=== PATIENT | male | born 1950 | race Caucasian/White ===

== ENCOUNTER 2017-02-25 11:31 | Inpatient (IN) ==
[2017-02-25] MEDS ORDERED: cefTRIAXone 1,000 MG in SODIUM CHLORIDE 0.9% 100 ML IV STA (13:55)
[2017-02-25] MEDS ORDERED: ALBUTEROL/IPRATROPIUM 3 ML NEB RESP TX STA (13:55)
[2017-02-25] MEDS ORDERED: SODIUM CHLORIDE 0.9% 500 ML IV STA (13:55)
[2017-02-25] MEDS ORDERED: methylPREDNISolone SOD SUC 125 MG/2 ML VIAL IV STA (13:55)
[2017-02-25] MEDS ORDERED: ONDANSETRON 4 MG/2 ML VIAL IV STA (13:55)
[2017-02-25] MEDS ORDERED: ONDANSETRON 4 MG/2 ML VIAL ONE (14:03)
[2017-02-25] MEDS ORDERED: methylPREDNISolone SOD SUC 125 MG/2 ML VIAL ONE (14:03)
[2017-02-25 14:30] LABS: Basophils % 0.2 % (0.0-0.8); Eosinophils # 0.3 10*3/uL (0.0-0.87); Hematocrit 32.3 VOL% (42.0-52.0); Hemoglobin 11.4 GM/DL (14.0-18.0); Immature Granulocytes % 0.6 %; Immature Granulocytes Absolute 0.05 #; Lymphocytes # 1.7 10*3/uL (1.4-4.0); Lymphocytes % 18.5 % (21.2-54.2); Mean Corpuscular HGB Conc 35.3 GM/DL (32-36); Mean Corpuscular Hemoglobin 31 PG (27-34); Mean Corpuscular Volume 88.5 FL (87-102); Mean Platelet Volume 9.4 FL (9.6-12.0); Monocytes # 0.8 10*3/uL (0.11-0.8); Monocytes % 9.3 % (1.7-12.7); Neutrophils # 6.1 10*3/uL (1.4-7.4); Neutrophils % 68.4 % (38.7-73.9); Platelet Count 209 T/CUMM (130-400); Red Blood Count 3.65 MC/CUMM (3.8-5.5); Red Cell Distribution Width 13.9 % (9.3-17.3); White Blood Count 8.9 T/CUMM (4-12)
[2017-02-25] MEDS ORDERED: cefTRIAXone 1,000 MG VIAL ONE (14:46)
[2017-02-25 14:56] LABS: Alanine Aminotransferase 15 U/L (16-61); Albumin 3.1 G/DL (3.4-5.0); Alkaline Phosphatase 56 U/L (45-117); Aspartate Amino Transferase 17 U/L (0-37); Bilirubin,Total < 0.39 MG/DL (0.2-1.0); Blood Urea Nitrogen 8 MG/DL (7-18); Calcium 8.6 MG/DL (8.5-10.1); Glucose 88 MG/DL (74-106); Magnesium 2.1 MG/DL (1.8-2.4); Osmolality,Calculated 260.5 MOS/KG (273-304); Potassium 4.2 MMOL/L (3.5-5.1); Sodium 132 MMOL/L (136-145); Total Protein 6.4 G/DL (6.4-8.3); Troponin I Only < 0.015 NG/ML (0.00-0.045)
[2017-02-25 15:46] LABS: Apearance,Urine CLEAR (Clear); Bilirubin,Urine Negative (Negative); Blood, Urine Negative (Negative); Glucose,Urine (UA) Negative (Negative); Ketones,Urine Negative (Negative); Nitrite,Urine Negative (Negative); Protein,Urine Negative; Urine Color Colorless (Yellow); Urine Specific Gravity 1.002 (1.001-1.035); Urine Urobilinogen < 2.0 EU/DL (0.2-1.0); WBC,Urine <1 /HPF (0-6)
[2017-02-25] MEDS ORDERED: ONDANSETRON 4 MG/2 ML VIAL IV PRN (18:05)
[2017-02-25] MEDS ORDERED: ACETAMINOPHEN 325 MG TABLET PO PRN (18:05)
[2017-02-25] MEDS ORDERED: ALBUTEROL/IPRATROPIUM 3 ML NEB RESP TX PRN (18:05)
[2017-02-25] MEDS ORDERED: NITROGLYCERIN SL 0.4 MG TABLET SL PRN (18:05)
[2017-02-25] MEDS: SODIUM CHLORIDE 0.9% 1,000 ML IV SCH (18:46)
[2017-02-25] MEDS: methylPREDNISolone SOD SUC 40 MG/1 ML VIAL IV SCH (18:46)
[2017-02-25] MEDS ORDERED: SERTRALINE 50 MG TABLET PO SCH (21:00)
[2017-02-25] MEDS ORDERED: GABAPENTIN 600 MG TABLET PO SCH (21:00)
[2017-02-25] MEDS ORDERED: SIMVASTATIN 80 MG TABLET PO SCH (21:00)
[2017-02-25] MEDS ORDERED: ENOXAPARIN 40 MG/0.4 ML SYRINGE SUBCUT SCH (21:00)
[2017-02-25] MEDS ORDERED: IBUPROFEN 800 MG TABLET PO SCH (21:00)
[2017-02-25] MEDS ORDERED: traZODone 50 MG TABLET PO SCH (21:00)
[2017-02-25] MEDS: CARVEDILOL 25 MG TABLET PO SCH (21:10)
[2017-02-25] MEDS: DOCUSATE SODIUM 100 MG CAPSULE PO SCH (21:10)
[2017-02-25] MEDS: ISOSORBIDE DINITRATE 20 MG TABLET PO SCH (21:10)
[2017-02-26] MEDS: SODIUM CHLORIDE 0.9% 1,000 ML IV SCH (01:57)
[2017-02-26] MEDS: methylPREDNISolone SOD SUC 40 MG/1 ML VIAL IV SCH ×2 (01:58→08:59)
[2017-02-26 05:16] LABS: Basophils % 0.1 % (0.0-0.8); Hematocrit 30.6 VOL% (42.0-52.0); Hemoglobin 10.6 GM/DL (14.0-18.0); Immature Granulocytes % 0.6 %; Immature Granulocytes Absolute 0.05 #; Lymphocytes # 0.6 10*3/uL (1.4-4.0); Lymphocytes % 7.1 % (21.2-54.2); Mean Corpuscular HGB Conc 34.6 GM/DL (32-36); Mean Corpuscular Hemoglobin 31 PG (27-34); Mean Platelet Volume 9.6 FL (9.6-12.0); Monocytes # 0.1 10*3/uL (0.11-0.8); Monocytes % 1.7 % (1.7-12.7); Neutrophils % 90.5 % (38.7-73.9); Platelet Count 190 T/CUMM (130-400); Red Cell Distribution Width 13.7 % (9.3-17.3); White Blood Count 7.7 T/CUMM (4-12)
[2017-02-26 05:59] LABS: Albumin 2.7 G/DL (3.4-5.0); Bilirubin,Total 0.7 MG/DL (0.2-1.0); Calcium 7.8 MG/DL (8.5-10.1); Magnesium 2.6 MG/DL (1.8-2.4); Osmolality,Calculated 270.1 MOS/KG (273-304); Potassium 4.7 MMOL/L (3.5-5.1); Risk Ratio 2.88; Total Protein 5.8 G/DL (6.4-8.3)
[2017-02-26 08:44] LABS: ABG Base Excess 0.9 MMOL/L (-2.5-2.5); ABG HCO3 25.1 MMOL/L (20-26); ABG Oxygen Saturation 92.8 % (95-100); ABG PCO2 46.5 MM HG (35-48); ABG PH 7.367 (7.35-7.45); ABG PO2 67.8 MM HG (80-95); ABG TCO2 24.1 MMOL/L (23-27)
[2017-02-26] MEDS: ISOSORBIDE DINITRATE 20 MG TABLET PO SCH (08:58)
[2017-02-26] MEDS: DOCUSATE SODIUM 100 MG CAPSULE PO SCH (08:59)
[2017-02-26] MEDS: CARVEDILOL 25 MG TABLET PO SCH (08:59)
[2017-02-26] MEDS ORDERED: PANTOPRAZOLE 40 MG VIAL IV SCH (09:00)
[2017-02-26] MEDS ORDERED: PANTOPRAZOLE 40 MG TABLET PO SCH (09:00)
[2017-02-26] MEDS ORDERED: FOSINOPRIL 10 MG TABLET PO SCH (09:00)
[2017-02-26] MEDS ORDERED: cefTRIAXone 1,000 MG in SYRINGE 1 EACH IV SCH (09:00)
[2017-02-26] MEDS ORDERED: FUROSEMIDE 20 MG TABLET PO SCH (09:00)
[2017-02-26] MEDS ORDERED: MAGNESIUM OXIDE 400 MG TABLET PO SCH (09:00)
[2017-02-26] MEDS ORDERED: CLOPIDOGREL 75 MG TABLET PO SCH (09:00)
[2017-02-26] MEDS ORDERED: GABAPENTIN 600 MG TABLET PO SCH (09:00)
[2017-02-26] MEDS ORDERED: ASPIRIN EC 81 MG TABLET PO SCH (09:00)
[2017-02-26] MEDS ORDERED: OMEGA 3 ACID ETHYL ESTERS 1 GM CAPSULE PO SCH (09:00)
[2017-02-26] MEDS ORDERED: guaiFENesin/CODEINE 5 ML LIQUID PO PRN (09:50)
[2017-02-26] MEDS ORDERED: BENZONATATE 100 MG CAPSULE PO SCH (11:00)
[2017-02-26] MEDS ORDERED: ALBUTEROL/IPRATROPIUM 3 ML NEB RESP TX SCH (13:00)
[2017-02-26] MEDS ORDERED: ALUMINUM/MAGNES/SIMETH MAX STR 30 ML UDCUP PO PRN (14:44)
[2017-02-26 16:50] VITALS: BP 163/72
== END 2017-02-26 16:40 | disposition home or self-care (01) | DRG 192 ==
LOC: N.ED 11:31 → N.EDINP 15:50 → N.2E 18:01
PROVIDERS: ADMIT Family Medicine; ATTEND Family Medicine

== ENCOUNTER 2017-09-28 10:03 | Inpatient (IN) ==
[2017-09-28] MEDS ORDERED: FUROSEMIDE 100 MG/10 ML VIAL IV STA (10:27)
[2017-09-28] MEDS ORDERED: ALBUTEROL/IPRATROPIUM 3 ML NEB RESP TX STA (10:27)
[2017-09-28] MEDS ORDERED: methylPREDNISolone SOD SUC 125 MG/2 ML VIAL IV STA (10:32)
[2017-09-28 10:46] LABS: Basophils % 0.1 % (0.0-0.8); Eosinophils # 0.3 10*3/uL (0.0-0.87); Eosinophils % 3.7 % (0.00-10.9); Hematocrit 34.5 VOL% (42.0-52.0); Hemoglobin 12.2 GM/DL (14.0-18.0); Immature Granulocytes % 0.3 %; Immature Granulocytes Absolute 0.02 #; Lymphocytes # 0.9 10*3/uL (1.4-4.0); Lymphocytes % 12.5 % (21.2-54.2); Mean Corpuscular HGB Conc 35.4 GM/DL (32-36); Mean Corpuscular Hemoglobin 31 PG (27-34); Mean Corpuscular Volume 87.6 FL (87-102); Mean Platelet Volume 9.5 FL (9.6-12.0); Monocytes # 0.8 10*3/uL (0.11-0.8); Monocytes % 10.7 % (1.7-12.7); Neutrophils # 5.4 10*3/uL (1.4-7.4); Neutrophils % 72.7 % (38.7-73.9); Platelet Count 194 T/CUMM (130-400); Red Blood Count 3.94 MC/CUMM (3.8-5.5); Red Cell Distribution Width 13.8 % (9.3-17.3); White Blood Count 7.4 T/CUMM (4-12)
[2017-09-28 10:56] LABS: PT Patient Result 10.4 SECS; Partial Thromboplastin Time 29.3 SECS (0-40)
[2017-09-28 11:06] LABS: Alanine Aminotransferase 13 U/L (16-61); Albumin 3.5 G/DL (3.4-5.0); Alkaline Phosphatase 69 U/L (45-117); Aspartate Amino Transferase 25 U/L (0-37); Blood Urea Nitrogen 9 MG/DL (7-18); CKMB % 2.7 %; Calcium 8.7 MG/DL (8.5-10.1); Glucose 100 MG/DL (74-106); Osmolality,Calculated 242.1 MOS/KG (273-304); Potassium 4.8 MMOL/L (3.5-5.1); Sodium 121 MMOL/L (136-145); Troponin I Only < 0.015 NG/ML (0.00-0.045)
[2017-09-28 11:22] LABS: Apearance,Urine CLEAR (Clear); Bacteria,Urine Occasional /HPF (Few); Bilirubin,Urine Negative (Negative); Blood, Urine Small mg/dL (Negative); Glucose,Urine (UA) Negative (Negative); Ketones,Urine Negative (Negative); Nitrite,Urine Negative (Negative); Protein,Urine Negative; RBC,Urine 2 /HPF (0-4); Sperm,Urine Occasional /HPF (Negative); Urine Color Yellow (Yellow); WBC,Urine 1 /HPF (0-6)
[2017-09-28 12:14] LABS: Barbiturates Screen,Urine Negative (Negative); Benzodiazepines Screen,Urine Negative (Negative); Cannabinoid Screen,Urine Negative (Negative); Opiate Screen,Urine Negative (Negative); Phencyclidine Screen,Urine Negative (Negative)
[2017-09-28] MEDS ORDERED: ONDANSETRON 4 MG/2 ML VIAL IV PRN (13:20)
[2017-09-28] MEDS: SODIUM CHLORIDE 0.9% 1,000 ML IV SCH (17:05)
[2017-09-28] MEDS: ZALEPLON 5 MG CAPSULE PO PRN (20:07)
[2017-09-28] MEDS: SIMVASTATIN 80 MG TABLET PO SCH (20:07)
[2017-09-28] MEDS: ISOSORBIDE DINITRATE 20 MG TABLET PO SCH (20:07)
[2017-09-29 02:59] LABS: Calcium 9.2 MG/DL (8.5-10.1); Osmolality,Calculated 255.2 MOS/KG (273-304); Potassium 4.4 MMOL/L (3.5-5.1)
[2017-09-29] MEDS: SODIUM CHLORIDE 0.9% 1,000 ML IV SCH ×2 (06:29→20:09)
[2017-09-29] MEDS: CLOPIDOGREL 75 MG TABLET PO SCH (09:29)
[2017-09-29] MEDS: PANTOPRAZOLE 40 MG TABLET PO SCH (09:29)
[2017-09-29] MEDS: FOSINOPRIL 10 MG TABLET PO SCH (09:29)
[2017-09-29] MEDS: ISOSORBIDE DINITRATE 20 MG TABLET PO SCH ×2 (09:29→20:09)
[2017-09-29] MEDS ORDERED: NITROGLYCERIN SL 0.4 MG TABLET SL PRN (11:55)
[2017-09-29] MEDS ORDERED: ALBUTEROL/IPRATROPIUM 3 ML NEB RESP TX PRN (12:00)
[2017-09-29] MEDS: methylPREDNISolone SOD SUC 40 MG/1 ML VIAL IV SCH ×2 (12:49→23:47)
[2017-09-29] MEDS: NICOTINE 14 MG/24 HR PATCH TRANSDERM SCH (12:49)
[2017-09-29 16:06] LABS: Calcium 8.8 MG/DL (8.5-10.1); Osmolality,Calculated 247.8 MOS/KG (273-304); Potassium 4.3 MMOL/L (3.5-5.1)
[2017-09-29] MEDS: CARVEDILOL 25 MG TABLET PO SCH (16:55)
[2017-09-29] MEDS: GABAPENTIN 600 MG TABLET PO SCH (20:08)
[2017-09-29] MEDS: ZALEPLON 5 MG CAPSULE PO PRN (20:08)
[2017-09-29] MEDS: SIMVASTATIN 80 MG TABLET PO SCH (20:08)
[2017-09-29] MEDS ORDERED: SERTRALINE 50 MG TABLET PO SCH (21:00)
[2017-09-29] MEDS ORDERED: traZODone 50 MG TABLET PO SCH (21:00)
[2017-09-30 06:13] LABS: Hematocrit 35.4 VOL% (42.0-52.0); Hemoglobin 12.1 GM/DL (14.0-18.0); Immature Granulocytes % 0.5 %; Immature Granulocytes Absolute 0.03 #; Lymphocytes # 0.6 10*3/uL (1.4-4.0); Lymphocytes % 9.4 % (21.2-54.2); Mean Corpuscular HGB Conc 34.2 GM/DL (32-36); Mean Corpuscular Hemoglobin 30 PG (27-34); Mean Corpuscular Volume 88.1 FL (87-102); Mean Platelet Volume 10.1 FL (9.6-12.0); Monocytes # 0.2 10*3/uL (0.11-0.8); Monocytes % 3.7 % (1.7-12.7); Neutrophils # 5.3 10*3/uL (1.4-7.4); Neutrophils % 86.4 % (38.7-73.9); Platelet Count 193 T/CUMM (130-400); Red Blood Count 4.02 MC/CUMM (3.8-5.5); Red Cell Distribution Width 14.5 % (9.3-17.3); White Blood Count 6.2 T/CUMM (4-12)
[2017-09-30 06:53] LABS: Calcium 8.9 MG/DL (8.5-10.1); Osmolality,Calculated 263.5 MOS/KG (273-304); Potassium 4.4 MMOL/L (3.5-5.1); Thyroid Stimulating Hormone 0.972 uIU/ml (0.358-3.74)
[2017-09-30] MEDS: SODIUM CHLORIDE 0.9% 1,000 ML IV SCH (08:47)
[2017-09-30] MEDS: CARVEDILOL 25 MG TABLET PO SCH (08:47)
[2017-09-30] MEDS: ISOSORBIDE DINITRATE 20 MG TABLET PO SCH (08:47)
[2017-09-30] MEDS: PANTOPRAZOLE 40 MG TABLET PO SCH (08:48)
[2017-09-30] MEDS: FOSINOPRIL 10 MG TABLET PO SCH (08:48)
[2017-09-30] MEDS: CLOPIDOGREL 75 MG TABLET PO SCH (08:48)
[2017-09-30] MEDS: GABAPENTIN 600 MG TABLET PO SCH (08:48)
[2017-09-30] MEDS ORDERED: MAGNESIUM OXIDE 400 MG TABLET PO SCH (09:00)
[2017-09-30] MEDS ORDERED: ASPIRIN EC 81 MG TABLET PO SCH (09:00)
[2017-09-30] MEDS: NICOTINE 14 MG/24 HR PATCH TRANSDERM SCH (10:57)
[2017-09-30] MEDS: methylPREDNISolone SOD SUC 40 MG/1 ML VIAL IV SCH (14:23)
[2017-09-30 16:25] VITALS: BP 144/70
== END 2017-09-30 16:49 | disposition home or self-care (01) | DRG 191 ==
LOC: N.ED 10:03 → N.EDINP 13:43 → N.TELEN 14:15
PROVIDERS: ADMIT Family Medicine

== ENCOUNTER 2018-04-12 09:44 | Inpatient (IN) ==
[2018-04-12] MEDS ORDERED: ALBUTEROL 2.5 MG/3 ML NEB RESP TX STA (09:58)
[2018-04-12] MEDS ORDERED: methylPREDNISolone SOD SUC 125 MG/2 ML VIAL IV STA (10:10)
[2018-04-12] MEDS ORDERED: ALBUTEROL/IPRATROPIUM 3 ML NEB RESP TX STA (10:10)
[2018-04-12] MEDS ORDERED: LEVOFLOXACIN INJ 750 MG in PREMIX 1 EACH IV STA (10:10)
[2018-04-12 10:26] LABS: Basophils % 0.3 % (0.0-0.8); Eosinophils # 0.6 10*3/uL (0.0-0.87); Eosinophils % 6.5 % (0.00-10.9); Hematocrit 36.6 VOL% (42.0-52.0); Hemoglobin 12.3 GM/DL (14.0-18.0); Immature Granulocytes % 0.3 %; Immature Granulocytes Absolute 0.03 #; Lymphocytes # 1.3 10*3/uL (1.4-4.0); Lymphocytes % 15.1 % (21.2-54.2); Mean Corpuscular HGB Conc 33.6 GM/DL (32-36); Mean Corpuscular Hemoglobin 31 PG (27-34); Mean Platelet Volume 10.4 FL (9.6-12.0); Monocytes # 0.9 10*3/uL (0.11-0.8); Neutrophils # 5.8 10*3/uL (1.4-7.4); Neutrophils % 67.8 % (38.7-73.9); Platelet Count 157 T/CUMM (130-400); Red Blood Count 4.02 MC/CUMM (3.8-5.5); Red Cell Distribution Width 13.7 % (9.3-17.3); White Blood Count 8.6 T/CUMM (4-12)
[2018-04-12 10:50] LABS: Albumin 3.6 G/DL (3.4-5.0); Bilirubin,Total 0.7 MG/DL (0.2-1.0); Calcium 8.5 MG/DL (8.5-10.1); Osmolality,Calculated 260.7 MOS/KG (273-304); Potassium 5.1 MMOL/L (3.5-5.1); Total Protein 6.8 G/DL (6.4-8.3)
[2018-04-12] MEDS ORDERED: diphenhydrAMINE 50 MG/1 ML VIAL ONE (11:14)
[2018-04-12] MEDS ORDERED: ACETAMINOPHEN 325 MG TABLET PO PRN (11:18)
[2018-04-12] MEDS ORDERED: ONDANSETRON 4 MG/2 ML VIAL IV PRN (11:18)
[2018-04-12] MEDS ORDERED: ALBUTEROL/IPRATROPIUM 3 ML NEB RESP TX PRN (11:18)
[2018-04-12] MEDS ORDERED: NITROGLYCERIN SL 0.4 MG TABLET SL PRN (11:26)
[2018-04-12] MEDS ORDERED: diphenhydrAMINE 50 MG/1 ML VIAL IV STA (11:53)
[2018-04-12] MEDS: cefTRIAXone 1,000 MG in SYRINGE 1 EACH IV SCH (13:30)
[2018-04-12] MEDS: ENOXAPARIN 40 MG/0.4 ML SYRINGE SUBCUT SCH (13:31)
[2018-04-12 14:51] LABS: Troponin I 0.095 NG/ML (0.00-0.045)
[2018-04-12] MEDS ORDERED: FUROSEMIDE 40 MG/4 ML VIAL IV ONE (15:55)
[2018-04-12 16:58] LABS: Troponin I 0.082 NG/ML (0.00-0.045)
[2018-04-12] MEDS: DOCUSATE SODIUM 100 MG CAPSULE PO SCH (22:25)
[2018-04-12] MEDS: CARVEDILOL 25 MG TABLET PO SCH (22:26)
[2018-04-12] MEDS: ISOSORBIDE DINITRATE 20 MG TABLET PO SCH (22:26)
[2018-04-12] MEDS: SIMVASTATIN 40 MG TABLET PO SCH (22:27)
[2018-04-12] MEDS: GABAPENTIN 600 MG TABLET PO SCH (22:27)
[2018-04-12] MEDS: traZODone 50 MG TABLET PO SCH (22:28)
[2018-04-12] MEDS: SERTRALINE 50 MG TABLET PO SCH (22:28)
[2018-04-12] MEDS: methylPREDNISolone SOD SUC 125 MG/2 ML VIAL IV SCH (22:29)
[2018-04-12] MEDS: FLUTICASONE/SALMETEROL 250-50 DISKUS 14 DOSE INH SCH (22:39)
[2018-04-13 05:29] LABS: Hematocrit 37.7 VOL% (42.0-52.0); Hemoglobin 12.7 GM/DL (14.0-18.0); Immature Granulocytes % 0.9 %; Immature Granulocytes Absolute 0.09 #; Lymphocytes # 0.7 10*3/uL (1.4-4.0); Mean Corpuscular HGB Conc 33.7 GM/DL (32-36); Mean Corpuscular Hemoglobin 31 PG (27-34); Mean Corpuscular Volume 91.1 FL (87-102); Mean Platelet Volume 10.4 FL (9.6-12.0); Monocytes # 0.3 10*3/uL (0.11-0.8); Monocytes % 2.6 % (1.7-12.7); Neutrophils # 8.7 10*3/uL (1.4-7.4); Neutrophils % 89.5 % (38.7-73.9); Platelet Count 167 T/CUMM (130-400); Red Blood Count 4.14 MC/CUMM (3.8-5.5); Red Cell Distribution Width 13.7 % (9.3-17.3); White Blood Count 9.7 T/CUMM (4-12)
[2018-04-13 05:45] LABS: Calcium 8.5 MG/DL (8.5-10.1); Osmolality,Calculated 270.4 MOS/KG (273-304); Potassium 4.4 MMOL/L (3.5-5.1)
[2018-04-13 05:59] LABS: Troponin I 0.066 NG/ML (0.00-0.045)
[2018-04-13] MEDS ORDERED: Omeprazole [Omeprazole] 20 MG PO SCH (09:00)
[2018-04-13] MEDS: NICOTINE 14 MG/24 HR PATCH TRANSDERM SCH (09:09)
[2018-04-13] MEDS: CLOPIDOGREL 75 MG TABLET PO SCH (09:09)
[2018-04-13] MEDS: OMEGA 3 ACID ETHYL ESTERS 1 GM CAPSULE PO SCH (09:11)
[2018-04-13] MEDS: CARVEDILOL 25 MG TABLET PO SCH ×2 (09:11→21:36)
[2018-04-13] MEDS: GABAPENTIN 600 MG TABLET PO SCH ×2 (09:11→21:36)
[2018-04-13] MEDS: ASPIRIN EC 81 MG TABLET PO SCH (09:11)
[2018-04-13] MEDS: PANTOPRAZOLE 40 MG TABLET PO SCH (09:11)
[2018-04-13] MEDS: DOCUSATE SODIUM 100 MG CAPSULE PO SCH ×2 (09:11→21:36)
[2018-04-13] MEDS: LISINOPRIL 10 MG TABLET PO SCH (09:11)
[2018-04-13] MEDS: MAGNESIUM OXIDE 400 MG TABLET PO SCH (09:11)
[2018-04-13] MEDS: ISOSORBIDE DINITRATE 20 MG TABLET PO SCH ×2 (09:12→21:36)
[2018-04-13] MEDS: FLUTICASONE/SALMETEROL 250-50 DISKUS 14 DOSE INH SCH ×2 (09:12→21:42)
[2018-04-13] MEDS: cefTRIAXone 1,000 MG in SYRINGE 1 EACH IV SCH (12:16)
[2018-04-13] MEDS: methylPREDNISolone SOD SUC 125 MG/2 ML VIAL IV SCH ×2 (12:19→23:04)
[2018-04-13] MEDS: ENOXAPARIN 40 MG/0.4 ML SYRINGE SUBCUT SCH (12:19)
[2018-04-13] MEDS: SIMVASTATIN 40 MG TABLET PO SCH (21:36)
[2018-04-13] MEDS: SERTRALINE 50 MG TABLET PO SCH (21:36)
[2018-04-13] MEDS: traZODone 50 MG TABLET PO SCH (21:37)
[2018-04-14] MEDS ORDERED: FUROSEMIDE 40 MG TABLET PO SCH (09:00)
[2018-04-14] MEDS: LISINOPRIL 10 MG TABLET PO SCH (09:06)
[2018-04-14] MEDS: MAGNESIUM OXIDE 400 MG TABLET PO SCH (09:07)
[2018-04-14] MEDS: OMEGA 3 ACID ETHYL ESTERS 1 GM CAPSULE PO SCH (09:07)
[2018-04-14] MEDS: NICOTINE 14 MG/24 HR PATCH TRANSDERM SCH (09:07)
[2018-04-14] MEDS: PANTOPRAZOLE 40 MG TABLET PO SCH (09:09)
[2018-04-14] MEDS: GABAPENTIN 600 MG TABLET PO SCH (09:09)
[2018-04-14] MEDS: ISOSORBIDE DINITRATE 20 MG TABLET PO SCH (09:09)
[2018-04-14] MEDS: CLOPIDOGREL 75 MG TABLET PO SCH (09:09)
[2018-04-14] MEDS: ASPIRIN EC 81 MG TABLET PO SCH (09:09)
[2018-04-14] MEDS: CARVEDILOL 25 MG TABLET PO SCH (09:10)
[2018-04-14] MEDS: DOCUSATE SODIUM 100 MG CAPSULE PO SCH (09:10)
[2018-04-14] MEDS: FLUTICASONE/SALMETEROL 250-50 DISKUS 14 DOSE INH SCH (09:11)
[2018-04-14 11:38] VITALS: BP 99/59
[2018-04-14] MEDS: methylPREDNISolone SOD SUC 125 MG/2 ML VIAL IV SCH (11:54)
[2018-04-14] MEDS: ENOXAPARIN 40 MG/0.4 ML SYRINGE SUBCUT SCH (11:56)
[2018-04-14] MEDS: cefTRIAXone 1,000 MG in SYRINGE 1 EACH IV SCH (11:57)
[2018-04-14 13:11] LABS: Troponin I 0.043 NG/ML (0.00-0.045)
== END 2018-04-14 16:32 | disposition home or self-care (01) | DRG 190 ==
LOC: N.ED 09:44 → N.EDINP 11:18 → N.TELEN 12:44
PROVIDERS: ADMIT Family Medicine; ATTEND Family Medicine

== ENCOUNTER 2018-06-12 15:37 | Observation (INO) ==
[2018-06-12] MEDS ORDERED: ALBUTEROL/IPRATROPIUM 3 ML NEB RESP TX STA (15:51)
[2018-06-12] MEDS ORDERED: FUROSEMIDE 40 MG/4 ML VIAL IV STA (15:57)
[2018-06-12 16:00] LABS: Basophils # 0.1 10*3/uL (0.0-0.2); Basophils % 0.5 % (0.0-0.8); Eosinophils # 0.6 10*3/uL (0.0-0.87); Eosinophils % 5.5 % (0.00-10.9); Hematocrit 39.7 VOL% (42.0-52.0); Immature Granulocytes % 0.5 %; Immature Granulocytes Absolute 0.05 #; Lymphocytes # 1.9 10*3/uL (1.4-4.0); Mean Corpuscular HGB Conc 32.7 GM/DL (32-36); Mean Corpuscular Hemoglobin 31 PG (27-34); Mean Corpuscular Volume 93.6 FL (87-102); Mean Platelet Volume 9.6 FL (9.6-12.0); Monocytes # 1.1 10*3/uL (0.11-0.8); Monocytes % 10.7 % (1.7-12.7); Neutrophils # 6.9 10*3/uL (1.4-7.4); Neutrophils % 64.8 % (38.7-73.9); Platelet Count 199 T/CUMM (130-400); Red Blood Count 4.24 MC/CUMM (3.8-5.5); Red Cell Distribution Width 14.4 % (9.3-17.3); White Blood Count 10.6 T/CUMM (4-12)
[2018-06-12 16:26] LABS: Albumin 3.7 G/DL (3.4-5.0); Bilirubin,Total 0.4 MG/DL (0.2-1.0); Calcium 8.6 MG/DL (8.5-10.1); Osmolality,Calculated 257.9 MOS/KG (273-304); Potassium 4.8 MMOL/L (3.5-5.1); Total Protein 7.1 G/DL (6.4-8.3)
[2018-06-12] MEDS ORDERED: ACETAMINOPHEN 325 MG TABLET PO PRN (17:28)
[2018-06-12] MEDS ORDERED: ONDANSETRON 4 MG/2 ML VIAL IV PRN (17:28)
[2018-06-12] MEDS ORDERED: methylPREDNISolone SOD SUC 125 MG/2 ML VIAL IV STA (17:28)
[2018-06-12] MEDS: ALBUTEROL/IPRATROPIUM 3 ML NEB RESP TX SCH (19:25)
[2018-06-12] MEDS: DOCUSATE SODIUM 100 MG CAPSULE PO SCH (21:14)
[2018-06-12] MEDS ORDERED: NITROGLYCERIN SL 0.4 MG TABLET SL PRN (21:48)
[2018-06-12] MEDS ORDERED: FUROSEMIDE 40 MG/4 ML VIAL IV ONE (21:53)
[2018-06-12] MEDS ORDERED: methylPREDNISolone SOD SUC 40 MG/1 ML VIAL IV SCH (22:00)
[2018-06-12] MEDS ORDERED: traZODone 50 MG TABLET PO SCH (22:00)
[2018-06-12] MEDS ORDERED: SIMVASTATIN 80 MG TABLET PO SCH (22:00)
[2018-06-12] MEDS ORDERED: SERTRALINE 50 MG TABLET PO SCH (22:00)
[2018-06-12] MEDS: ISOSORBIDE DINITRATE 20 MG TABLET PO SCH (23:03)
[2018-06-12] MEDS: CARVEDILOL 25 MG TABLET PO SCH (23:04)
[2018-06-13] MEDS: ALBUTEROL/IPRATROPIUM 3 ML NEB RESP TX SCH ×2 (00:25→07:37)
[2018-06-13] MEDS: FLUTICASONE/SALMETEROL 250-50 DISKUS 14 DOSE INH SCH ×2 (02:29→08:53)
[2018-06-13] MEDS: methylPREDNISolone SOD SUC 40 MG/1 ML VIAL IV SCH ×2 (02:29→08:58)
[2018-06-13] MEDS: ISOSORBIDE DINITRATE 20 MG TABLET PO SCH ×2 (03:28→09:53)
[2018-06-13 07:27] LABS: Calcium 8.8 MG/DL (8.5-10.1); Osmolality,Calculated 264.8 MOS/KG (273-304); Potassium 4.2 MMOL/L (3.5-5.1)
[2018-06-13] MEDS: CARVEDILOL 25 MG TABLET PO SCH (08:54)
[2018-06-13] MEDS: DOCUSATE SODIUM 100 MG CAPSULE PO SCH (08:57)
[2018-06-13] MEDS ORDERED: PANTOPRAZOLE 40 MG TABLET PO SCH (09:00)
[2018-06-13] MEDS ORDERED: ASPIRIN EC 81 MG TABLET PO SCH (09:00)
[2018-06-13] MEDS ORDERED: CLOPIDOGREL 75 MG TABLET PO SCH (09:00)
[2018-06-13] MEDS ORDERED: NORTRIPTYLINE 10 MG CAPSULE PO SCH (09:00)
[2018-06-13] MEDS ORDERED: LISINOPRIL 10 MG TABLET PO SCH (09:00)
[2018-06-13] MEDS ORDERED: OMEGA 3 ACID ETHYL ESTERS 1 GM CAPSULE PO SCH (09:00)
[2018-06-13] MEDS ORDERED: GABAPENTIN 600 MG TABLET PO SCH (09:00)
[2018-06-13 11:47] VITALS: BP 116/90
== END 2018-06-13 12:34 | disposition home or self-care (01) ==
LOC: N.EDINP 15:37 → N.ED 15:37 → N.2E 18:38
PROVIDERS: ADMIT Family Medicine; ATTEND Family Medicine

== ENCOUNTER 2018-07-15 18:03 | Inpatient (IN) ==
[2018-07-15] MEDS ORDERED: AZITHROMYCIN INJ 500 MG in SODIUM CHLORIDE 0.9% 250 ML IV STA (18:18)
[2018-07-15] MEDS ORDERED: ONDANSETRON 4 MG/2 ML VIAL IM STA (18:18)
[2018-07-15] MEDS ORDERED: cefTRIAXone 1,000 MG in SODIUM CHLORIDE 0.9% 100 ML IV STA (18:18)
[2018-07-15] MEDS ORDERED: methylPREDNISolone SOD SUC 125 MG/2 ML VIAL IV STA (18:18)
[2018-07-15 18:30] LABS: Basophils # 0.1 10*3/uL (0.0-0.2); Basophils % 0.5 % (0.0-0.8); Eosinophils # 1.4 10*3/uL (0.0-0.87); Eosinophils % 11.4 % (0.00-10.9); Hemoglobin 13.9 GM/DL (14.0-18.0); Immature Granulocytes % 0.4 %; Immature Granulocytes Absolute 0.05 #; Lymphocytes # 4.3 10*3/uL (1.4-4.0); Lymphocytes % 36.1 % (21.2-54.2); Mean Corpuscular HGB Conc 32.3 GM/DL (32-36); Mean Corpuscular Hemoglobin 31 PG (27-34); Mean Corpuscular Volume 95.6 FL (87-102); Mean Platelet Volume 10.2 FL (9.6-12.0); Monocytes # 1.2 10*3/uL (0.11-0.8); Monocytes % 10.3 % (1.7-12.7); Neutrophils # 4.9 10*3/uL (1.4-7.4); Neutrophils % 41.3 % (38.7-73.9); Platelet Count 156 T/CUMM (130-400); Red Cell Distribution Width 13.8 % (9.3-17.3); White Blood Count 11.8 T/CUMM (4-12)
[2018-07-15] MEDS ORDERED: ALBUTEROL NEB SOLN 5 MG/ML 20 ML/BOTTLE RESP TX SCH (18:30)
[2018-07-15 18:43] LABS: INR 0.9; PT Patient Result 10.3 SECS; Partial Thromboplastin Time 23.2 SECS (0-40)
[2018-07-15 18:48] LABS: Alanine Aminotransferase 34 U/L (16-61); Albumin 3.8 G/DL (3.4-5.0); Alkaline Phosphatase 54 U/L (45-117); Aspartate Amino Transferase 35 U/L (0-37); Blood Urea Nitrogen 20 MG/DL (7-18); Calcium 8.9 MG/DL (8.5-10.1); Glucose 160 MG/DL (74-106); Osmolality,Calculated 278.8 MOS/KG (273-304); Potassium 4.2 MMOL/L (3.5-5.1); Sodium 137 MMOL/L (136-145); Total Protein 6.9 G/DL (6.4-8.3)
[2018-07-15] MEDS ORDERED: ONDANSETRON 4 MG/2 ML VIAL IV STA (18:54)
[2018-07-15 18:56] LABS: Troponin I 0.051 NG/ML (0.00-0.045)
[2018-07-15 19:01] LABS: Eosinophils 13 % (0-10); Lymphocytes 35 % (20-55); Segmented Neutrophils 46 % (50-85); Total Cells Counted 100
[2018-07-15 19:02] LABS: Platelet Estimate Normal
[2018-07-15] MEDS ORDERED: FUROSEMIDE 40 MG/4 ML VIAL IV STA (19:06)
[2018-07-15] MEDS ORDERED: ONDANSETRON 4 MG/2 ML VIAL IV PRN (20:51)
[2018-07-15] MEDS ORDERED: ACETAMINOPHEN 500 MG TABLET PO PRN (20:51)
[2018-07-15] MEDS: ISOSORBIDE DINITRATE 20 MG TABLET PO SCH (23:08)
[2018-07-15] MEDS: SIMVASTATIN 40 MG TABLET PO SCH (23:08)
[2018-07-15] MEDS: SERTRALINE 50 MG TABLET PO SCH (23:09)
[2018-07-15] MEDS: ZALEPLON 5 MG CAPSULE PO PRN (23:09)
[2018-07-16] MEDS: ALBUTEROL/IPRATROPIUM 3 ML NEB RESP TX SCH ×4 (02:12→19:37)
[2018-07-16] MEDS ORDERED: methylPREDNISolone SOD SUC 125 MG/2 ML VIAL IV SCH (04:00)
[2018-07-16 05:23] LABS: Troponin I 0.153 NG/ML (0.00-0.045)
[2018-07-16] MEDS: FLUTICASONE/SALMETEROL 250-50 DISKUS 14 DOSE INH SCH (09:56)
[2018-07-16] MEDS: POTASSIUM CHLORIDE 10 MEQ TABLET PO SCH (09:57)
[2018-07-16] MEDS: ASPIRIN EC 81 MG TABLET PO SCH (09:57)
[2018-07-16] MEDS: ISOSORBIDE DINITRATE 20 MG TABLET PO SCH ×2 (09:57→20:42)
[2018-07-16] MEDS: CARVEDILOL 25 MG TABLET PO SCH ×2 (09:57→20:43)
[2018-07-16] MEDS: prednisoLONE ACETATE 1% OPH SUSP 5 ML BOTTLE RIGHT EYE SCH ×4 (09:58→20:49)
[2018-07-16] MEDS: PANTOPRAZOLE 40 MG TABLET PO SCH (09:58)
[2018-07-16] MEDS: CLOPIDOGREL 75 MG TABLET PO SCH (09:58)
[2018-07-16] MEDS: GENTAMICIN 0.3% OPH SOLN 5 ML BOTTLE RIGHT EYE SCH ×4 (09:59→20:50)
[2018-07-16] MEDS: KETOROLAC 0.5% OPH SOLN 3 ML BOTTLE RIGHT EYE SCH ×4 (10:00→20:43)
[2018-07-16] MEDS: FUROSEMIDE 40 MG/4 ML VIAL IV SCH (10:03)
[2018-07-16] MEDS: NORTRIPTYLINE 10 MG CAPSULE PO SCH (12:24)
[2018-07-16] MEDS: FOSINOPRIL 10 MG TABLET PO SCH (12:24)
[2018-07-16] MEDS: methylPREDNISolone SOD SUC 40 MG/1 ML VIAL IV SCH ×2 (12:25→20:51)
[2018-07-16] MEDS ORDERED: cefTRIAXone 2,000 MG in SYRINGE 1 EACH IV SCH (15:00)
[2018-07-16] MEDS ORDERED: AZITHROMYCIN INJ 500 MG in SODIUM CHLORIDE 0.9% 250 ML IV SCH (18:00)
[2018-07-16] MEDS: ZALEPLON 5 MG CAPSULE PO PRN (20:41)
[2018-07-16] MEDS: CLORAZEPATE 3.75 MG TABLET PO SCH (20:41)
[2018-07-16] MEDS: PREGABALIN 50 MG CAPSULE PO SCH (20:42)
[2018-07-16] MEDS: BENZONATATE 100 MG CAPSULE PO SCH (20:42)
[2018-07-16] MEDS: SIMVASTATIN 40 MG TABLET PO SCH (20:43)
[2018-07-16] MEDS: SERTRALINE 50 MG TABLET PO SCH (20:44)
[2018-07-16] MEDS: DEXTROMETHORPHAN ER 6 MG/ML 90 ML/BOTTLE PO SCH (20:45)
[2018-07-16] MEDS ORDERED: traZODone 50 MG TABLET PO SCH (21:00)
[2018-07-17] MEDS: ALBUTEROL/IPRATROPIUM 3 ML NEB RESP TX SCH ×2 (01:03→07:03)
[2018-07-17] MEDS: methylPREDNISolone SOD SUC 40 MG/1 ML VIAL IV SCH ×2 (03:49→13:21)
[2018-07-17] MEDS: BENZONATATE 100 MG CAPSULE PO SCH (08:37)
[2018-07-17] MEDS: ASPIRIN EC 81 MG TABLET PO SCH (08:37)
[2018-07-17] MEDS: CLOPIDOGREL 75 MG TABLET PO SCH (08:37)
[2018-07-17] MEDS: POTASSIUM CHLORIDE 10 MEQ TABLET PO SCH (08:37)
[2018-07-17] MEDS: CLORAZEPATE 3.75 MG TABLET PO SCH (08:37)
[2018-07-17] MEDS: ISOSORBIDE DINITRATE 20 MG TABLET PO SCH (08:38)
[2018-07-17] MEDS: PANTOPRAZOLE 40 MG TABLET PO SCH (08:38)
[2018-07-17] MEDS: NORTRIPTYLINE 10 MG CAPSULE PO SCH (08:38)
[2018-07-17] MEDS: CARVEDILOL 25 MG TABLET PO SCH (08:38)
[2018-07-17] MEDS: PREGABALIN 50 MG CAPSULE PO SCH (08:38)
[2018-07-17] MEDS: FOSINOPRIL 10 MG TABLET PO SCH (08:38)
[2018-07-17] MEDS: GENTAMICIN 0.3% OPH SOLN 5 ML BOTTLE RIGHT EYE SCH (08:38)
[2018-07-17] MEDS: DEXTROMETHORPHAN ER 6 MG/ML 90 ML/BOTTLE PO SCH (08:39)
[2018-07-17] MEDS: FLUTICASONE/SALMETEROL 250-50 DISKUS 14 DOSE INH SCH (08:39)
[2018-07-17] MEDS: prednisoLONE ACETATE 1% OPH SUSP 5 ML BOTTLE RIGHT EYE SCH (08:39)
[2018-07-17] MEDS: KETOROLAC 0.5% OPH SOLN 3 ML BOTTLE RIGHT EYE SCH (08:39)
[2018-07-17] MEDS: FUROSEMIDE 40 MG/4 ML VIAL IV SCH (08:40)
[2018-07-17 12:15] VITALS: BP 101/60
== END 2018-07-17 13:15 | disposition home or self-care (01) | DRG 191 ==
LOC: N.ED 18:03 → N.EDINP 20:50 → N.TELES 21:56
PROVIDERS: ADMIT Family Medicine; ATTEND Family Medicine

== ENCOUNTER 2018-09-17 05:45 | Observation (INO) ==
[2018-09-17] MEDS ORDERED: methylPREDNISolone SOD SUC 125 MG/2 ML VIAL IV STA (05:51)
[2018-09-17 05:58] LABS: Basophils % 0.5 % (0.0-0.8); Eosinophils # 0.9 10*3/uL (0.0-0.87); Eosinophils % 10.2 % (0.00-10.9); Hemoglobin 12.4 GM/DL (14.0-18.0); Immature Granulocytes % 0.4 %; Immature Granulocytes Absolute 0.03 #; Lymphocytes # 1.5 10*3/uL (1.4-4.0); Mean Corpuscular HGB Conc 31.8 GM/DL (32-36); Mean Corpuscular Volume 94.7 FL (87-102); Monocytes % 9.8 % (1.7-12.7); Neutrophils % 62.1 % (38.7-73.9); Platelet Count 159 T/CUMM (130-400); Red Blood Count 4.12 MC/CUMM (3.8-5.5); White Blood Count 8.5 T/CUMM (4-12)
[2018-09-17] MEDS ORDERED: ALBUTEROL 2.5 MG/3 ML NEB RESP TX SCH (06:00)
[2018-09-17 06:08] LABS: PT Patient Result 10.6 SECS
[2018-09-17 06:19] LABS: ABG Base Excess -2.8 MMOL/L (-2.5-2.5); ABG Oxygen Saturation 94.2 % (95-100); ABG PCO2 60.8 MM HG (35-48); ABG PO2 82.2 MM HG (80-95); ABG TCO2 23.5 MMOL/L (23-27); Allen Test Positive
[2018-09-17 06:23] LABS: Albumin 3.8 G/DL (3.4-5.0); Bilirubin,Total 0.4 MG/DL (0.2-1.0); Calcium 8.6 MG/DL (8.5-10.1); Osmolality,Calculated 279.5 MOS/KG (273-304); Total Protein 6.6 G/DL (6.4-8.3)
[2018-09-17] MEDS ORDERED: ACETAMINOPHEN 325 MG TABLET PO PRN (06:58)
[2018-09-17] MEDS ORDERED: ONDANSETRON 4 MG/2 ML VIAL IV PRN (06:58)
[2018-09-17] MEDS ORDERED: FUROSEMIDE 40 MG/4 ML VIAL IV STA (06:58)
[2018-09-17] MEDS ORDERED: cefTRIAXone 1,000 MG in SODIUM CHLORIDE 0.9% 100 ML IV STA (07:02)
[2018-09-17] MEDS ORDERED: PANTOPRAZOLE 40 MG TABLET PO SCH (09:00)
[2018-09-17] MEDS: DOCUSATE SODIUM 100 MG CAPSULE PO SCH ×2 (09:32→20:39)
[2018-09-17] MEDS: ROFLUMILAST 500 MCG TABLET PO SCH (09:33)
[2018-09-17] MEDS: ALBUTEROL/IPRATROPIUM 3 ML NEB RESP TX SCH ×4 (10:28→23:52)
[2018-09-17] MEDS ORDERED: IBUPROFEN 200 MG TABLET PO PRN (16:42)
[2018-09-17] MEDS ORDERED: NITROGLYCERIN SL 0.4 MG TABLET SL PRN (16:42)
[2018-09-17] MEDS: FAMOTIDINE 20 MG TABLET PO SCH (20:39)
[2018-09-17] MEDS: CARVEDILOL 25 MG TABLET PO SCH (20:39)
[2018-09-17] MEDS: ENALAPRIL 5 MG TABLET PO SCH (20:39)
[2018-09-17] MEDS ORDERED: SERTRALINE 50 MG TABLET PO SCH (21:00)
[2018-09-17] MEDS ORDERED: traZODone 50 MG TABLET PO SCH (21:00)
[2018-09-17] MEDS ORDERED: SIMVASTATIN 80 MG TABLET PO SCH (21:00)
[2018-09-17] MEDS: methylPREDNISolone SOD SUC 40 MG/1 ML VIAL IV SCH (23:03)
[2018-09-18] MEDS: ALBUTEROL/IPRATROPIUM 3 ML NEB RESP TX SCH ×2 (03:01→07:11)
[2018-09-18] MEDS ORDERED: CLOPIDOGREL 75 MG TABLET PO SCH (09:00)
[2018-09-18] MEDS ORDERED: ASPIRIN EC 81 MG TABLET PO SCH (09:00)
[2018-09-18] MEDS ORDERED: SERTRALINE 50 MG TABLET PO SCH (09:00)
[2018-09-18] MEDS ORDERED: FLUTICASONE/SALMETEROL 250-50 DISKUS 14 DOSE INH SCH (09:00)
[2018-09-18] MEDS ORDERED: cefTRIAXone 1,000 MG in SYRINGE 1 EACH IV SCH (09:00)
[2018-09-18] MEDS ORDERED: FUROSEMIDE 40 MG/4 ML VIAL IV SCH (09:00)
[2018-09-18] MEDS ORDERED: PANTOPRAZOLE 40 MG TABLET PO SCH (09:00)
[2018-09-18] MEDS: ROFLUMILAST 500 MCG TABLET PO SCH (09:48)
[2018-09-18] MEDS: DOCUSATE SODIUM 100 MG CAPSULE PO SCH (09:49)
[2018-09-18] MEDS: FAMOTIDINE 20 MG TABLET PO SCH (09:49)
[2018-09-18] MEDS: ENALAPRIL 5 MG TABLET PO SCH (09:50)
[2018-09-18] MEDS: CARVEDILOL 25 MG TABLET PO SCH (09:54)
[2018-09-18] MEDS: methylPREDNISolone SOD SUC 40 MG/1 ML VIAL IV SCH (09:56)
[2018-09-18 10:04] VITALS: BP 106/63
== END 2018-09-18 11:00 | disposition home or self-care (01) ==
LOC: EDUNIT# → EDBD → N.EDINP 05:45 → N.ED 05:45 → N.EDINP 07:52 → N.2E 08:04
PROVIDERS: ADMIT Family Medicine; ATTEND Family Medicine

== ENCOUNTER 2018-10-01 04:14 | Inpatient (IN) ==
[2018-10-01] MEDS ORDERED: methylPREDNISolone SOD SUC 125 MG/2 ML VIAL ONE (04:23)
[2018-10-01] MEDS ORDERED: ALBUTEROL/IPRATROPIUM 3 ML NEB RESP TX STA (04:26)
[2018-10-01] MEDS ORDERED: methylPREDNISolone SOD SUC 125 MG/2 ML VIAL IV STA (04:26)
[2018-10-01] MEDS ORDERED: ONDANSETRON 4 MG/2 ML VIAL IV STA (04:26)
[2018-10-01] MEDS ORDERED: ALBUTEROL 2.5 MG/3 ML NEB RESP TX SCH (04:30)
[2018-10-01] MEDS ORDERED: MORPHINE 4 MG/1 ML VIAL IV STA (04:33)
[2018-10-01 04:36] LABS: Basophils # 0.1 10*3/uL (0.0-0.2); Basophils % 0.3 % (0.0-0.8); Eosinophils % 6.9 % (0.00-10.9); Hemoglobin 12.8 GM/DL (14.0-18.0); Immature Granulocytes % 0.7 %; Lymphocytes # 4.3 10*3/uL (1.4-4.0); Lymphocytes % 29.5 % (21.2-54.2); Mean Corpuscular HGB Conc 31.2 GM/DL (32-36); Mean Corpuscular Volume 95.8 FL (87-102); Mean Platelet Volume 10.6 FL (9.6-12.0); Monocytes % 10.5 % (1.7-12.7); Neutrophils % 52.1 % (38.7-73.9); Platelet Count 149 T/CUMM (130-400); Red Blood Count 4.28 MC/CUMM (3.8-5.5); Red Cell Distribution Width 14.2 % (9.3-17.3); White Blood Count 14.4 T/CUMM (4-12)
[2018-10-01] MEDS ORDERED: LORazepam 2 MG/1 ML VIAL IV STA (04:42)
[2018-10-01 04:52] LABS: INR 0.9; PT Patient Result 9.6 SECS
[2018-10-01 04:53] LABS: ABG Base Excess -4.1 MMOL/L (-2.5-2.5); ABG Oxygen Saturation 97.3 % (95-100); ABG TCO2 21.9 MMOL/L (23-27); Allen Test Positive; Pt O2 Delivery Device Other
[2018-10-01 04:54] LABS: Alanine Aminotransferase 40 U/L (16-61); Albumin 3.4 G/DL (3.4-5.0); Alkaline Phosphatase 49 U/L (45-117); Aspartate Amino Transferase 43 U/L (0-37); Bilirubin,Total < 0.39 MG/DL (0.2-1.0); Blood Urea Nitrogen 17 MG/DL (7-18); Calcium 8.5 MG/DL (8.5-10.1); Glucose 162 MG/DL (74-106); Osmolality,Calculated 280.7 MOS/KG (273-304); Total Protein 6.3 G/DL (6.4-8.3)
[2018-10-01 04:56] LABS: Eosinophils 12 % (0-10); Hypochromasia 1+; Lymphocytes 33 % (20-55); Platelet Estimate Adequate; Segmented Neutrophils 46 % (50-85); Total Cells Counted 100
[2018-10-01] MEDS ORDERED: FUROSEMIDE 20 MG/2 ML VIAL IV STA (05:29)
[2018-10-01] MEDS ORDERED: cefTRIAXone 1,000 MG in SODIUM CHLORIDE 0.9% 100 ML IV STA (05:32)
[2018-10-01] MEDS ORDERED: ONDANSETRON 4 MG/2 ML VIAL IV PRN (06:17)
[2018-10-01] MEDS ORDERED: MORPHINE 4 MG/1 ML VIAL IV PRN (06:17)
[2018-10-01] MEDS ORDERED: ACETAMINOPHEN 325 MG TABLET PO PRN (06:17)
[2018-10-01] MEDS: SODIUM CHLORIDE 0.9% 1,000 ML IV SCH (06:46)
[2018-10-01] MEDS: ALBUTEROL/IPRATROPIUM 3 ML NEB RESP TX SCH ×5 (07:20→22:39)
[2018-10-01 08:49] LABS: Barbiturates Screen,Urine Negative (Negative); Benzodiazepines Screen,Urine Negative (Negative); Cannabinoid Screen,Urine Negative (Negative); Opiate Screen,Urine Negative (Negative); Phencyclidine Screen,Urine Negative (Negative)
[2018-10-01] MEDS ORDERED: IBUPROFEN 200 MG TABLET PO PRN (08:58)
[2018-10-01] MEDS ORDERED: NITROGLYCERIN SL 0.4 MG TABLET SL PRN (08:58)
[2018-10-01] MEDS: SERTRALINE 50 MG TABLET PO SCH ×2 (09:42→20:49)
[2018-10-01] MEDS: FAMOTIDINE 20 MG TABLET PO SCH ×2 (09:43→20:49)
[2018-10-01] MEDS: PANTOPRAZOLE 40 MG TABLET PO SCH (09:43)
[2018-10-01] MEDS: CLOPIDOGREL 75 MG TABLET PO SCH (09:43)
[2018-10-01] MEDS: DOCUSATE SODIUM 100 MG CAPSULE PO SCH ×2 (09:44→20:49)
[2018-10-01] MEDS: ASPIRIN EC 81 MG TABLET PO SCH (09:44)
[2018-10-01] MEDS: ROFLUMILAST 500 MCG TABLET PO SCH (09:44)
[2018-10-01] MEDS: CARVEDILOL 25 MG TABLET PO SCH ×2 (09:45→20:49)
[2018-10-01] MEDS: FUROSEMIDE 20 MG/2 ML VIAL IV SCH ×2 (09:50→16:03)
[2018-10-01] MEDS: FLUTICASONE/SALMETEROL 250-50 DISKUS 14 DOSE INH SCH (10:07)
[2018-10-01] MEDS ORDERED: methylPREDNISolone SOD SUC 40 MG/1 ML VIAL IV ONE (10:39)
[2018-10-01] MEDS: methylPREDNISolone SOD SUC 40 MG/1 ML VIAL IV SCH ×2 (13:29→20:50)
[2018-10-01] MEDS: TEMAZEPAM 15 MG CAPSULE PO PRN (20:48)
[2018-10-01] MEDS: traZODone 50 MG TABLET PO SCH (20:48)
[2018-10-01] MEDS: SIMVASTATIN 80 MG TABLET PO SCH (20:49)
[2018-10-02] MEDS: ALBUTEROL/IPRATROPIUM 3 ML NEB RESP TX SCH ×6 (02:18→23:20)
[2018-10-02 05:10] LABS: Basophils % 0.1 % (0.0-0.8); Eosinophils % 0.1 % (0.00-10.9); Hematocrit 38.6 VOL% (42.0-52.0); Hemoglobin 12.7 GM/DL (14.0-18.0); Immature Granulocytes % 0.5 %; Immature Granulocytes Absolute 0.08 #; Lymphocytes # 0.6 10*3/uL (1.4-4.0); Lymphocytes % 4.2 % (21.2-54.2); Mean Corpuscular HGB Conc 32.9 GM/DL (32-36); Mean Corpuscular Volume 92.1 FL (87-102); Mean Platelet Volume 10.4 FL (9.6-12.0); Neutrophils % 92.1 % (38.7-73.9); Platelet Count 123 T/CUMM (130-400); Red Blood Count 4.19 MC/CUMM (3.8-5.5); Red Cell Distribution Width 13.9 % (9.3-17.3); White Blood Count 14.7 T/CUMM (4-12)
[2018-10-02] MEDS: methylPREDNISolone SOD SUC 40 MG/1 ML VIAL IV SCH ×3 (05:20→21:59)
[2018-10-02] MEDS: cefTRIAXone 1,000 MG in SYRINGE 1 EACH IV SCH (05:22)
[2018-10-02 05:42] LABS: Band Neutrophils 3 % (0-10); Lymphocytes 6 % (20-55); Segmented Neutrophils 87 % (50-85); Total Cells Counted 100
[2018-10-02 05:44] LABS: Hypochromasia 1+; Platelet Estimate Decreased
[2018-10-02 05:47] LABS: Alanine Aminotransferase 43 U/L (16-61); Albumin 3.2 G/DL (3.4-5.0); Alkaline Phosphatase 48 U/L (45-117); Aspartate Amino Transferase 36 U/L (0-37); Bilirubin,Total < 0.39 MG/DL (0.2-1.0); Blood Urea Nitrogen 20 MG/DL (7-18); Calcium 8.7 MG/DL (8.5-10.1); Glucose 129 MG/DL (74-106); Osmolality,Calculated 274.1 MOS/KG (273-304); Total Protein 6.6 G/DL (6.4-8.3)
[2018-10-02] MEDS: SODIUM CHLORIDE 0.9% 1,000 ML IV SCH (05:51)
[2018-10-02] MEDS: FUROSEMIDE 20 MG/2 ML VIAL IV SCH ×2 (08:26→15:57)
[2018-10-02] MEDS: PANTOPRAZOLE 40 MG TABLET PO SCH (08:29)
[2018-10-02] MEDS: ROFLUMILAST 500 MCG TABLET PO SCH (08:30)
[2018-10-02] MEDS: DOCUSATE SODIUM 100 MG CAPSULE PO SCH ×2 (08:30→21:59)
[2018-10-02] MEDS: ASPIRIN EC 81 MG TABLET PO SCH (08:30)
[2018-10-02] MEDS: SERTRALINE 50 MG TABLET PO SCH ×2 (08:30→21:59)
[2018-10-02] MEDS: CLOPIDOGREL 75 MG TABLET PO SCH (08:31)
[2018-10-02] MEDS: FAMOTIDINE 20 MG TABLET PO SCH ×2 (08:31→21:59)
[2018-10-02] MEDS: CARVEDILOL 25 MG TABLET PO SCH ×2 (08:31→21:59)
[2018-10-02] MEDS: FLUTICASONE/SALMETEROL 250-50 DISKUS 14 DOSE INH SCH (08:32)
[2018-10-02 12:03] LABS: Troponin I 1.66 NG/ML (0.00-0.045)
[2018-10-02 15:18] LABS: CKMB % 6.2 %
[2018-10-02 15:31] LABS: Troponin I 1.53 NG/ML (0.00-0.045)
[2018-10-02] MEDS ORDERED: RAMIPRIL 2.5 MG CAPSULE PO SCH (21:00)
[2018-10-02] MEDS: SIMVASTATIN 80 MG TABLET PO SCH (21:58)
[2018-10-02] MEDS: traZODone 50 MG TABLET PO SCH (21:59)
[2018-10-02] MEDS: TEMAZEPAM 15 MG CAPSULE PO PRN (22:13)
[2018-10-03] MEDS: ALBUTEROL/IPRATROPIUM 3 ML NEB RESP TX SCH ×3 (02:28→11:25)
[2018-10-03 05:39] LABS: Basophils % 0.2 % (0.0-0.8); Hematocrit 35.9 VOL% (42.0-52.0); Hemoglobin 11.8 GM/DL (14.0-18.0); Immature Granulocytes % 0.9 %; Immature Granulocytes Absolute 0.15 #; Lymphocytes # 0.7 10*3/uL (1.4-4.0); Lymphocytes % 4.2 % (21.2-54.2); Mean Corpuscular HGB Conc 32.9 GM/DL (32-36); Mean Corpuscular Volume 91.8 FL (87-102); Mean Platelet Volume 10.7 FL (9.6-12.0); Monocytes % 4.6 % (1.7-12.7); Neutrophils % 90.1 % (38.7-73.9); Platelet Count 146 T/CUMM (130-400); Red Blood Count 3.91 MC/CUMM (3.8-5.5); Red Cell Distribution Width 14.1 % (9.3-17.3); White Blood Count 17.4 T/CUMM (4-12)
[2018-10-03 06:10] LABS: Band Neutrophils 1 % (0-10); Hypochromasia Slight; Lymphocytes 2 % (20-55); Platelet Estimate Adequate; Segmented Neutrophils 91 % (50-85); Total Cells Counted 100
[2018-10-03] MEDS: methylPREDNISolone SOD SUC 40 MG/1 ML VIAL IV SCH (06:32)
[2018-10-03] MEDS: cefTRIAXone 1,000 MG in SYRINGE 1 EACH IV SCH (06:35)
[2018-10-03] MEDS ORDERED: CARVEDILOL 12.5 MG TABLET PO SCH (09:00)
[2018-10-03] MEDS ORDERED: LISINOPRIL 2.5 MG TABLET PO SCH (09:00)
[2018-10-03] MEDS ORDERED: predniSONE 20 MG TABLET PO SCH (09:00)
[2018-10-03] MEDS: FUROSEMIDE 20 MG/2 ML VIAL IV SCH (09:47)
[2018-10-03] MEDS: ASPIRIN EC 81 MG TABLET PO SCH (10:05)
[2018-10-03] MEDS: CLOPIDOGREL 75 MG TABLET PO SCH (10:05)
[2018-10-03] MEDS: DOCUSATE SODIUM 100 MG CAPSULE PO SCH (10:05)
[2018-10-03] MEDS: FAMOTIDINE 20 MG TABLET PO SCH (10:05)
[2018-10-03] MEDS: ROFLUMILAST 500 MCG TABLET PO SCH (10:05)
[2018-10-03] MEDS: PANTOPRAZOLE 40 MG TABLET PO SCH (10:05)
[2018-10-03] MEDS: FLUTICASONE/SALMETEROL 250-50 DISKUS 14 DOSE INH SCH (10:06)
[2018-10-03] MEDS: SODIUM CHLORIDE 0.9% 1,000 ML IV SCH (10:06)
[2018-10-03] MEDS: SERTRALINE 50 MG TABLET PO SCH (10:06)
[2018-10-03 12:32] VITALS: BP 103/37
== END 2018-10-03 13:25 | disposition home or self-care (01) | DRG 190 ==
LOC: N.ED 04:14 → N.EDINP 05:33 → N.ICU 05:47 → N.3E 10-02 19:22
PROVIDERS: ADMIT Family Medicine; ATTEND Family Medicine

== ENCOUNTER 2018-10-17 23:18 | Inpatient (IN) ==
[2018-10-17] MEDS ORDERED: ALBUTEROL 2.5 MG/3 ML NEB RESP TX SCH (23:45)
[2018-10-17] MEDS ORDERED: ONDANSETRON 4 MG/2 ML VIAL IV STA (23:56)
[2018-10-17] MEDS ORDERED: cefTRIAXone 1,000 MG in SODIUM CHLORIDE 0.9% 100 ML IV STA (23:56)
[2018-10-17] MEDS ORDERED: methylPREDNISolone SOD SUC 125 MG/2 ML VIAL IV STA (23:56)
[2018-10-17] MEDS ORDERED: AZITHROMYCIN INJ 500 MG in SODIUM CHLORIDE 0.9% 250 ML IV STA (23:56)
[2018-10-18] MEDS: ALBUTEROL/IPRATROPIUM 3 ML NEB RESP TX SCH ×5 (00:05→19:28)
[2018-10-18 01:03] LABS: INR 0.9; PT Patient Result 9.6 SECS; Partial Thromboplastin Time 26.2 SECS (0-40)
[2018-10-18 01:05] LABS: Alanine Aminotransferase 22 U/L (16-61); Albumin 3.5 G/DL (3.4-5.0); Alkaline Phosphatase 55 U/L (45-117); Aspartate Amino Transferase 21 U/L (0-37); Bilirubin,Total < 0.39 MG/DL (0.2-1.0); Blood Urea Nitrogen 19 MG/DL (7-18); Calcium 8.6 MG/DL (8.5-10.1); Glucose 121 MG/DL (74-106); Osmolality,Calculated 275.8 MOS/KG (273-304); Total Protein 7.2 G/DL (6.4-8.3); Troponin I 0.017 NG/ML (0.00-0.045)
[2018-10-18 01:14] LABS: Basophils % 0.2 % (0.0-0.8); Eosinophils # 1.1 10*3/uL (0.0-0.87); Eosinophils % 11.5 % (0.00-10.9); Hematocrit 36.8 VOL% (42.0-52.0); Hemoglobin 11.9 GM/DL (14.0-18.0); Immature Granulocytes % 0.9 %; Immature Granulocytes Absolute 0.08 #; Lymphocytes # 1.2 10*3/uL (1.4-4.0); Lymphocytes % 12.6 % (21.2-54.2); Mean Corpuscular HGB Conc 32.3 GM/DL (32-36); Mean Corpuscular Volume 93.4 FL (87-102); Mean Platelet Volume 9.8 FL (9.6-12.0); Monocytes % 10.9 % (1.7-12.7); Neutrophils % 63.9 % (38.7-73.9); Platelet Count 159 T/CUMM (130-400); Red Blood Count 3.94 MC/CUMM (3.8-5.5); Red Cell Distribution Width 13.8 % (9.3-17.3); White Blood Count 9.1 T/CUMM (4-12)
[2018-10-18] MEDS ORDERED: FUROSEMIDE 40 MG/4 ML VIAL IV STA (01:21)
[2018-10-18 01:50] LABS: Band Neutrophils 1 % (0-10); Eosinophils 18 % (0-10); Lymphocytes 18 % (20-55); Segmented Neutrophils 54 % (50-85)
[2018-10-18 01:51] LABS: Hypochromasia Slight; Platelet Estimate Normal
[2018-10-18 01:52] LABS: Total Cells Counted 100
[2018-10-18] MEDS ORDERED: ONDANSETRON 4 MG/2 ML VIAL IV PRN (03:11)
[2018-10-18] MEDS ORDERED: ACETAMINOPHEN 325 MG TABLET PO PRN (03:11)
[2018-10-18] MEDS ORDERED: ALBUTEROL/IPRATROPIUM 3 ML NEB RESP TX SCH (03:30)
[2018-10-18] MEDS: PIPERACILLIN/TAZOBACTAM 3,375 MG in SODIUM CHLORIDE 0.9% 100 ML IV SCH ×3 (04:19→21:05)
[2018-10-18 04:23] LABS: Basophils % 0.1 % (0.0-0.8); Eosinophils # 0.3 10*3/uL (0.0-0.87); Eosinophils % 4.2 % (0.00-10.9); Hemoglobin 10.9 GM/DL (14.0-18.0); Immature Granulocytes % 0.5 %; Immature Granulocytes Absolute 0.04 #; Lymphocytes # 0.4 10*3/uL (1.4-4.0); Lymphocytes % 4.9 % (21.2-54.2); Mean Corpuscular Volume 92.2 FL (87-102); Mean Platelet Volume 9.7 FL (9.6-12.0); Monocytes % 2.5 % (1.7-12.7); Neutrophils % 87.8 % (38.7-73.9); Platelet Count 143 T/CUMM (130-400); Red Blood Count 3.58 MC/CUMM (3.8-5.5); Red Cell Distribution Width 13.8 % (9.3-17.3); White Blood Count 7.9 T/CUMM (4-12)
[2018-10-18 05:04] LABS: Alanine Aminotransferase 18 U/L (16-61); Albumin 3.1 G/DL (3.4-5.0); Alkaline Phosphatase 51 U/L (45-117); Aspartate Amino Transferase 16 U/L (0-37); Bilirubin,Total < 0.39 MG/DL (0.2-1.0); Blood Urea Nitrogen 19 MG/DL (7-18); Calcium 8.3 MG/DL (8.5-10.1); Glucose 131 MG/DL (74-106); Osmolality,Calculated 276.8 MOS/KG (273-304); Total Protein 6.1 G/DL (6.4-8.3)
[2018-10-18 05:22] LABS: Eosinophils 5 % (0-10); Lymphocytes 4 % (20-55); Platelet Estimate Adequate; Polychromasia Few; Segmented Neutrophils 91 % (50-85); Total Cells Counted 100
[2018-10-18] MEDS: PANTOPRAZOLE 40 MG TABLET PO SCH (08:40)
[2018-10-18] MEDS: methylPREDNISolone SOD SUC 40 MG/1 ML VIAL IV SCH ×3 (08:40→21:06)
[2018-10-18] MEDS ORDERED: PANTOPRAZOLE 40 MG VIAL IV SCH (09:00)
[2018-10-18] MEDS: SERTRALINE 50 MG TABLET PO SCH (21:06)
[2018-10-18] MEDS: traZODone 50 MG TABLET PO PRN (21:06)
[2018-10-18] MEDS: CLORAZEPATE 3.75 MG TABLET PO SCH (21:07)
[2018-10-18] MEDS: CARVEDILOL 25 MG TABLET PO SCH (21:07)
[2018-10-19] MEDS: ALBUTEROL/IPRATROPIUM 3 ML NEB RESP TX SCH ×6 (04:02→23:05)
[2018-10-19] MEDS: PIPERACILLIN/TAZOBACTAM 3,375 MG in SODIUM CHLORIDE 0.9% 100 ML IV SCH ×3 (04:55→20:32)
[2018-10-19] MEDS: FLUTICASONE/SALMETEROL 250-50 DISKUS 14 DOSE INH SCH (08:58)
[2018-10-19] MEDS: CLOPIDOGREL 75 MG TABLET PO SCH (08:58)
[2018-10-19] MEDS: CARVEDILOL 25 MG TABLET PO SCH ×2 (08:59→20:35)
[2018-10-19] MEDS: ASPIRIN EC 81 MG TABLET PO SCH (08:59)
[2018-10-19] MEDS: PANTOPRAZOLE 40 MG TABLET PO SCH (08:59)
[2018-10-19] MEDS: SIMVASTATIN 80 MG TABLET PO SCH (08:59)
[2018-10-19] MEDS: methylPREDNISolone SOD SUC 40 MG/1 ML VIAL IV SCH ×3 (08:59→20:34)
[2018-10-19] MEDS: FUROSEMIDE 40 MG TABLET PO SCH (08:59)
[2018-10-19] MEDS: CLORAZEPATE 3.75 MG TABLET PO SCH ×2 (09:03→20:35)
[2018-10-19] MEDS ORDERED: DEXTROMETHORPHAN ER 6 MG/ML 90 ML/BOTTLE PO PRN (09:41)
[2018-10-19] MEDS ORDERED: BISACODYL 5 MG TABLET PO PRN (09:41)
[2018-10-19] MEDS: BENZONATATE 100 MG CAPSULE PO SCH ×2 (18:22→20:35)
[2018-10-19] MEDS: SERTRALINE 50 MG TABLET PO SCH (20:35)
[2018-10-19] MEDS: traZODone 50 MG TABLET PO PRN (20:35)
[2018-10-20] MEDS: ALBUTEROL/IPRATROPIUM 3 ML NEB RESP TX SCH ×6 (02:35→23:13)
[2018-10-20] MEDS: PIPERACILLIN/TAZOBACTAM 3,375 MG in SODIUM CHLORIDE 0.9% 100 ML IV SCH ×3 (04:17→22:06)
[2018-10-20] MEDS: ASPIRIN EC 81 MG TABLET PO SCH (08:41)
[2018-10-20] MEDS: CLOPIDOGREL 75 MG TABLET PO SCH (08:41)
[2018-10-20] MEDS: CARVEDILOL 25 MG TABLET PO SCH ×2 (08:41→22:08)
[2018-10-20] MEDS: SIMVASTATIN 80 MG TABLET PO SCH (08:41)
[2018-10-20] MEDS: BENZONATATE 100 MG CAPSULE PO SCH (08:41)
[2018-10-20] MEDS: FUROSEMIDE 40 MG TABLET PO SCH (08:41)
[2018-10-20] MEDS: CLORAZEPATE 3.75 MG TABLET PO SCH (08:41)
[2018-10-20] MEDS: methylPREDNISolone SOD SUC 40 MG/1 ML VIAL IV SCH ×3 (08:42→22:07)
[2018-10-20] MEDS: PANTOPRAZOLE 40 MG TABLET PO SCH (08:42)
[2018-10-20] MEDS: FLUTICASONE/SALMETEROL 250-50 DISKUS 14 DOSE INH SCH (08:43)
[2018-10-20] MEDS ORDERED: BENZONATATE 100 MG CAPSULE PO PRN (09:16)
[2018-10-20] MEDS ORDERED: LACTULOSE 20 GM/30 ML UDCUP PO PRN (09:22)
[2018-10-20] MEDS: POLYETHYLENE GLYCOL POWDER 17 GM PACK PO SCH ×2 (10:30→22:07)
[2018-10-20] MEDS: CLORAZEPATE 7.5 MG TABLET PO SCH ×2 (10:39→22:08)
[2018-10-20] MEDS: SERTRALINE 50 MG TABLET PO SCH (22:08)
[2018-10-20] MEDS: traZODone 50 MG TABLET PO PRN (22:10)
[2018-10-21] MEDS: ALBUTEROL/IPRATROPIUM 3 ML NEB RESP TX SCH ×4 (02:20→14:22)
[2018-10-21] MEDS: PIPERACILLIN/TAZOBACTAM 3,375 MG in SODIUM CHLORIDE 0.9% 100 ML IV SCH ×2 (04:09→11:49)
[2018-10-21] MEDS ORDERED: FAMOTIDINE 20 MG TABLET PO ONE (04:51)
[2018-10-21 05:29] LABS: Hematocrit 30.5 VOL% (42.0-52.0); Immature Granulocytes % 0.8 %; Immature Granulocytes Absolute 0.09 #; Lymphocytes # 0.5 10*3/uL (1.4-4.0); Lymphocytes % 4.4 % (21.2-54.2); Mean Corpuscular HGB Conc 32.8 GM/DL (32-36); Mean Corpuscular Volume 91.6 FL (87-102); Mean Platelet Volume 10.3 FL (9.6-12.0); Monocytes % 4.2 % (1.7-12.7); Neutrophils % 90.6 % (38.7-73.9); Platelet Count 156 T/CUMM (130-400); Red Blood Count 3.33 MC/CUMM (3.8-5.5); Red Cell Distribution Width 13.7 % (9.3-17.3); White Blood Count 10.8 T/CUMM (4-12)
[2018-10-21 05:42] LABS: Calcium 8.7 MG/DL (8.5-10.1); Osmolality,Calculated 280.5 MOS/KG (273-304)
[2018-10-21 06:02] LABS: Hypochromasia 1+; Lymphocytes 8 % (20-55); Ovalocytes Slight; Platelet Estimate Adequate; Segmented Neutrophils 86 % (50-85); Total Cells Counted 100
[2018-10-21] MEDS: CLORAZEPATE 7.5 MG TABLET PO SCH (08:55)
[2018-10-21] MEDS: CLOPIDOGREL 75 MG TABLET PO SCH (08:55)
[2018-10-21] MEDS: SIMVASTATIN 80 MG TABLET PO SCH (08:55)
[2018-10-21] MEDS: ASPIRIN EC 81 MG TABLET PO SCH (08:56)
[2018-10-21] MEDS: methylPREDNISolone SOD SUC 40 MG/1 ML VIAL IV SCH ×2 (08:56→15:23)
[2018-10-21] MEDS: PANTOPRAZOLE 40 MG TABLET PO SCH (08:56)
[2018-10-21] MEDS: CARVEDILOL 25 MG TABLET PO SCH (08:56)
[2018-10-21] MEDS: FLUTICASONE/SALMETEROL 250-50 DISKUS 14 DOSE INH SCH (08:58)
[2018-10-21] MEDS: POLYETHYLENE GLYCOL POWDER 17 GM PACK PO SCH (08:58)
[2018-10-21] MEDS ORDERED: FUROSEMIDE 40 MG TABLET PO SCH (09:00)
[2018-10-21 11:48] VITALS: BP 111/65
[2018-10-22] MEDS ORDERED: FUROSEMIDE 20 MG TABLET PO SCH (09:00)
== END 2018-10-21 15:54 | disposition home or self-care (01) ==
LOC: N.ED 23:18 → N.EDINP 10-18 03:10 → N.TELEN 10-18 06:38
PROVIDERS: ADMIT Family Medicine; ATTEND Family Medicine